=== PATIENT | female | born 1960 | race Caucasian/White ===

== ENCOUNTER 2020-08-13 06:59 | Day surgery (SDC) | payer BC ==
[~2020-08-13] VITALS: Ht 162.6 cm; Wt 66.5 kg
--- NOTE | ~2020-08-13 | HEMODYNAMI ---
PATIENT:DULCE METZ MEDICAL RECORD: [id number] : 58 LOCATION:[facility] ADMISSION DATE: 08/13/20 Generatedon:19:55 Patient name: DULCE METZ Patient #: [id number] SSN: [id number] : 1960 Date of study: 08/13/2020 Page: Of Hemodynamic Procedure Report Patient Data Patient Demographics Procedure consent was obtained First Name: DULCE Gender: Female Last Name: LASHAY : 1960 Patient #: [id number] Age: 59 year(s) Race: SSN: [id number] Additional ID: [id number] Contact details Address: [address] [place] [address] State: [place] City: [place] Zip code: [address] Past Medical History Allergies: No known allergies Admission Admission Data Admission Date: 08/13/2020 Admission Time: 6:59 Arrival Date: 08/13/2020 Arrival Time: 0:00 Admit Source: Other Insurance Payor: Private health insurance [facility] #: [id number] Height (in.): 64 BSA: 1.72 (m2) Height (cm.): 162.56 BMI: 25.23 (kg/m2) Weight (lbs.): 147 Weight (kg.): 66.68 Lab Results Lab Result Date: 08/13/2020 Lab Result Time: 0:00 Biochemistry Name Units Result Min Max BUN mg/dl 12 --(-*--)-- 7 18 Creatinine mg/dl 0.8 --(-*--)-- 0.6 1.3 eGFR ml/min 76.46749 *-(----)-- 90 120 NONAFRICAN CBC Name Units Result Min Max Hematocrit % 40.7 -*(----)-- 42 54 Hemoglobin g/dl 14 --(*---)-- 13.5 17.5 Procedure Procedure Types Cath Procedure Sedation Charges Moderate Sedation 10-24 minutes Peripheral Cath Diagnostic Procedure Supervisor Chlorine Liquefaction Peripheral Procedures AFRO Diagnostic Procedure Description Procedure Date Procedure Date: 08/13/2020 Procedure Start Time: 9:30 Procedure End Time: 9:50 Procedure Staff Name Function Vijay Montanez MD Performing Physician Kori Desouza RT Monitor Sary Cuadra RT Scrub Vivian Zambrano RN Nurse Duane Villeda RN Nurse Procedure Data Cath Procedure Fluoroscopy Diagnostic fluoroscopy Total fluoroscopy Time: 2.1 time: 2.1 min min Diagnostic fluoroscopy Total fluoroscopy dose: 127 dose: 127 mGy mGy Contrast Material Contrast Material Type Amount (ml) Isovue 370 66 Entry Location Entry Primary Successful Side Size Upsize Upsize Entry Closure Carroll ccessful Closure Location (Fr) 1 (Fr) 2 (Fr) Remarks Device Remarks Radial Right 6 Fr Mechanical artery Short Compression Estimated blood loss: 5 ml Diagnostic catheters Device Type Used For End Catheter Placement DIAGNOSTIC Pigtail 5Fr Procedure catheter ([id number]) Procedure Complications No complications Procedure Medications Medication Administration Route Dosage 0.9% NaCl I.V. 100 ml/hr Oxygen etCO2 Nasal cannula 2 l/min Zofran I.V. 4 mg Heparin Flush Bag added to field 2 bags (1000units/500ml NS) Lidocaine 2% added to field 20 Versed I.V. 1 mg Fentanyl I.V. 50 mcg Versed I.V. 1 mg Fentanyl I.V. 50 mcg Versed I.V. 1 mg Versed I.V. 1 mg Fentanyl I.V. 50 mcg Hemodynamics Rest BSA: 1.72 (m2) HGB: 14 (g/dl) O2 Consumption: Estimated: 160.72 (ml/min) O2 Cons umption indexed: Estimated:93.44 (ml/min/m) Heart Rate: 66 (bpm) Snapshots Pre Cath Intra NCS Post Cath Vital Signs Time Heart Resp SPO2 etCO2 NIBP (mmHg) Rhythm Pain Sedation Rate (ipm) (%) (mmHg) Status Level (bpm) 9:19:05 69 11 98 0 182/80(115) NSR 0 (11) 10(A) , No pain 9:23:27 71 7 97 45.7 176/86(143) NSR 0 (11) 10(A) , No pain 9:27:54 66 5 96 39 160/80(133) NSR 0 (11) 10(A) , No pain 9:32:12 69 7 97 38.2 161/86(128) NSR 0 (11) 10(A) , No pain 9:36:34 65 17 97 43.5 181/78(135) NSR 0 (11) 10(A) , No pain 9:40:54 75 11 95 36.7 158/78(120) NSR 0 (11) 10(A) , No pain 9:45:14 77 5 96 41.2 165/77(118) NSR 0 (11) 10(A) , No pain 9:49:32 76 9 98 43.5 168/91(135) NSR 0 (11) 10(A) , No pain Medications Time Medication Route Dose Verified Delivered Reason Notes Effe ctiveness by by 9:17:59 0.9% NaCl I.V. 100 Vijay Duane used for ml/hr Tarik Villeda field map editor 9:18:08 Oxygen etCO2 2 Vijay Duane used for Nasal l/min Tarik Villeda field map editor cannula 9:18:18 Zofran I.V. 4 mg Vijay Duane for nausea Tarik Villeda RN 9:18:28 Heparin Flush added 2 Vijay Vijay used for Bag to bags Tarik Montanez MD procedure (1000units/500ml field NS) 9:18:39 Lidocaine 2% added 20ml Vijay Vijay for local to vial Tarik Montanez MD anesthetic field 9:29:16 Versed I.V. 1 mg Vijay Duane for Tarik Villeda RN sedation 9:29:22 Fentanyl I.V. 50 Vijay Duane for mcg Tarik Villeda RN sedation 9:33:35 Versed I.V. 1 mg Vijay Duane for Tarik Villeda RN sedation 9:33:39 Fentanyl I.V. 50 Vijay Duane for mcg Tarik Villeda RN sedation 9:37:56 Versed I.V. 1 mg Vijay Duane for Tarik Villeda RN sedation 9:42:03 Versed I.V. 1 mg Vijay Duane for Tarik Villeda RN sedation 9:42:07 Fentanyl I.V. 50 Vijay Duane for mcg Tarik Villeda RN sedation Procedure Log Time Note 8:43:37 Diagnostic Cath Status : Elective 8:47:58 Admit Source: Other 8:48:11 Procedure Status Peripheral. 8:48:13 Time tracking: Regular hours (M-F 7:00 - 5:00) 8:48:17 Plan of Care:Hemodynamics will remain stable., Cardiac rhythm will remain stable., Comfort level will be maintained., Respiratory function will remain adequate., Patient/ family verbilizes understanding of procedure., Procedure tolerated without complication., Recovers from procedure without complications.. 8:48:25 H&P Date Dictated: 08/07/2020 Within 30 days and on chart.. 8:48:29 Family unavailable. 8:48:30 Patient NPO since Midnight. 8:48:37 Patient allergic to No known allergies 8:48:58 Arrival Date: 08/13/2020 12:00:00 AM 8:49:15 Insurance Payor : Private health insurance 8:49:42 Patient Height : 64 inches 8:49:45 Patient Weight : 147 lbs 8:54:52 Informed consent obtained and on chart 8:55:45 Vivian Zambrano RN sent for patient. Start room use. 8:56:00 Lab Result : eGFR NONAFRICAN 76.14003 ml/min 8:56:00 Lab Result : BUN 12 mg/dl 8:56:00 Lab Result : Creatinine 0.8 mg/dl 8:56:00 Lab Result : Hemoglobin 14 g/dl 8:56:00 Lab Result : Hematocrit 40.7 % 8:56:34 Lab results completed and on chart. 8:56:39 Stress Test: no; N/A ? 8:56:41 Alarms reviewed by R. N. 8:56:41 Sharps counted by scrub and verified by R.N. 8:56:47 ACC Patient presents with Stable Angina CCS Anginal Class 2--Slight limitation of ordinary activity. 9:00:43 Patient received from Pre/Post Procedure Room to [facility] 2 Alert and oriented. Tansferred to table in Supine position. 9:00:54 Warm blankets applied, and billie hugger turned on for patient comfort. 9:00:55 Correct patient and procedure confirmed by team. 9:00:55 ECG and BP/O2 sat monitors applied to patient. 9:13:23 Full Disclosure recording started 9:13:24 Pre-procedure instructions explained to patient. 9:13:25 Pre-op teaching completed and patient verbalized understanding. 9:15:41 Is the patient allergic to Iodine/contrast media? No. 9:15:42 Was the patient premedicated? Yes 9:15:43 Is patient on blood thinner?No 9:15:45 Patient diabetic? No. 9:15:47 If diabetic: On Metformin? N/A 9:15:50 Patient not . Patient is over age 55. 9:15:51 ----Pre-sedation anethsthesia assessment.---- 9:15:54 Previous problem with sedation/anesthesia? Yes NAUSEA 9:16:03 Snore? Yes 9:16:04 Sleep apnea? No 9:16:06 Deviated septum? No 9:16:06 Opens mouth fully? Yes 9:16:07 Sticks out tongue? Yes 9:16:10 Airway obstruction? No ? 9:16:12 Dentures? No ? 9:16:20 Modified Sathish's test Ulnar < 7 seconds 9:16:22 Patient pain scale 0/10 ?. 9:16:28 IV patent on arrival in right antecubital with 0.9% NaCl at KVO. 9:16:37 IV right antecubital D/C'd due to need to relocate for procedure.. 9:16:57 IV started by Vivian Zambrano RN inleft wrist with a 24 gauge IV catheter with 0.9% NaCl at KVO. 9:17:06 Right Radial area was prepped with chlora-prep and draped in sterile fashion 9:17:11 Use device set Radial Dx or PCI 9:17:13 ACIST Syringe (92536) opened to sterile field. 9:17:13 Medline Cath Pack ([id number]) opened to sterile field. 9:17:14 Bag Decanter (2002) opened to sterile field. 9:17:15 ACIST Hand Control (57079) opened to sterile field. 9:17:15 ACIST Manifold (69656) opened to sterile field. 9:17:17 MBrace Wrist Support ([id number]) opened to sterile field. 9:17:17 NEEDLE Cook 21G 4cm Radial ([id number]) opened to sterile field. 9:17:19 SHEATH 6FR RAIN ([id number]) opened to sterile field. 9:17:21 EMERALD Guide Wire (846-190) opened to sterile field. 9:17:59 0.9% NaCl 100 ml/hr I.V. was administered by Duane Villeda RN; used for procedure; Verbal order read back and verified. 9:18:08 Oxygen 2 l/min etCO2 Nasal cannula was administered by Duane Villeda RN; used for procedure; Verbal order read back and verified. 9:18:18 Zofran 4 mg I.V. was administered by Duane Villeda RN; for nausea; Verbal order read back and verified. 9:18:28 Heparin Flush Bag (1000units/500ml NS) 2 bags added to field was administered by Vijay Montanez MD; used for procedure; Verbal order read back and verified. 9:18:39 Lidocaine 2% 20ml vial added to field was administered by Vijay Montanez MD; for local anesthetic; Verbal order read back and verified. 9:21:08 Baseline sample Acquired. 9:21:14 Rhythm: sinus rhythm ::29 --------ALL STOP TIME OUT------ :29 Final Timeout: patient, procedure, and site verified with staff and physician. All members of the team are in agreement. 9:27:33 Right Radial site verified by team. 9:27:36 Fire Safety Assessment: A--An alcohol-based skin anteseptic being used preoperatively., C--Open oxygen or nitrous oxide is being used., D--An ESU, laser, or fiber-optic light is being used. 9:27:40 Physical assessment completed. ASA score P 2 - A patient with mild systemic disease as per Vijay Montanez MD. 9:27:42 2) 60-89 Mildly reduced kidney function, and other findings (as for stage 1) point to kidney disease. 9:27:52 Maximum allowable contrast dose (3.7 X eGFR X 0.75)214 ml. 9:27:56 Sedation plan: IV Moderate Sedation Medication:Versed, Fentanyl 9:29:16 Versed 1 mg I.V. was administered by Duane Villeda RN; for sedation; Verbal order read back and verified. 9:29:22 Fentanyl 50 mcg I.V. was administered by Duane Villeda RN; for sedation; Verbal order read back and verified. 9:29:53 Procedure started. 9:30:44 Local anesthetic to right radial artery with Lidocaine 2% by Vijay Montanez MD.INITIAL ACCESS ONLY 9:33:35 Versed 1 mg I.V. was administered by Duane Villeda RN; for sedation; Verbal order read back and verified. 9:33:39 Fentanyl 50 mcg I.V. was administered by Duane Villeda RN; for sedation; Verbal order read back and verified. 9:37:50 A 6 Fr Short sheath was inserted into the Right Radial artery 9:37:56 Versed 1 mg I.V. was administered by Duane Villeda RN; for sedation; Verbal order read back and verified. 9:38:53 A DIAGNOSTIC Pigtail 5Fr catheter ([id number]) was advanced over the wire and used for Procedure. 9:40:41 Abdominal Aortagram was performed. 9:42:03 Versed 1 mg I.V. was administered by Duane Villeda RN; for sedation; Verbal order read back and verified. 9:42:07 Fentanyl 50 mcg I.V. was administered by Duane Villeda RN; for sedation; Verbal order read back and verified. 9:42:33 Left leg runoff performed. 9:42:43 Injector settings: Ml/sec: 10, Volume: 20, 9:42:51 Right leg runoff performed. 9:42:55 Injector settings: Ml/sec: 10, Volume: 20, 9:44:25 Wire removed. 9:44:28 Catheter removed. 9:46:24 Sheath removed intact; hemostasis achieved with Mechanical Compression to the Right Radial artery. 9:46:26 Procedure ended.(Physican Out) 9:46:40 Fluoroscopy time 02.10 minutes. 9:46:44 Fluoroscopy dose: 127 mGy 9:46:44 Flurop Dose total: 127 9:46:48 Dose Area Product 26576 mGy/cm. 9:46:53 Contrast amount:Isovue 370 66ml. 9:47:02 Maximum allowable dose exceeded? No. 9:47:03 Sharps counted by scrub and verified by R.N. 9:47:06 Post Procedure Pulses reassessed and unchanged 9:47:19 Post-procedure physical assessment completed. ASA score P 2 - A patient with mild systemic disease as per Vijay Montanez MD. 9:47:22 Post procedure rhythm: unchanged. 9:47:24 Estimated blood loss: 5 ml 9:47:25 Post procedure instruction explained to patient.Patient verbalizes understanding. 9:47:26 Patient needs reinforcement of post procedure teaching. 9:47:57 Procedure type changed to Cath procedure, Sedation Charges, Moderate Sedation 10-24 minutes, Peripheral Cath Diagnostic Procedure, Supervisor Chlorine Liquefaction Peripheral Procedures, AFRO Diagnostic 9:48:44 Procedure and supply charges have been captured, reviewed, submitted and are correct. 9:49:17 Procedure Complication : No complications 9:50:18 Vital chart was stopped 9:50:21 AFRO Findings: PVD: surgery consult 9:50:23 See physician's report for complete and final results. 9:50:25 Report given to Pre/Post Procedure Room. 9:50:28 Patient transfered to Pre/Post Procedure Room with Stretcher. 9:50:30 Procedure ended. 9:50:30 Full Disclosure recording stopped 9:50:40 End room use (Document Last) 9:51:16 End room use (Document Last) 9:51:38 End room use (Document Last) Device Usage Item Name Manufacture Quantity Catalog Hospital Part Current Minima l Lot# / Number Charge Number Stock Stock Serial# Code ACIST Acist 1 49693 769137 [id number] [id number] 20 Syringe Medical (86365) Systems Inc Medline Medline 1 [id number] 35907 262186 5 Cath Pack ([id number]) Bag Microtek 1 636167 93673 876088 5 Decanter Medical Inc. () ACIST Hand Acist 1 02759 626172 481524 864125 5 Control Medical (94683) Systems Inc ACIST Acist 1 55903 967991 433638 000882 5 Manifold Medical (18085) Systems Inc MBrace Advanced 1 140-0250-00 799930 24509 254468 5 Wrist Vascular Support Dynamics ([id number]) NEEDLE Cook Cook Medical 1 [id number] 456672 395657 005809 5 21G 4cm Radial (N71952) SHEATH 6FR Cardinal 1 [id number] 799778 5130366 975102 5 [facility] (2112401) EMERALD Cardinal 1 502-455 454152 763950 282668 5 Guide Wire [facility] (423-724) DIAGNOSTIC Cardinal 1 [id number] 467091 183038 420708 5 Pigtail 5Fr Health catheter ([id number]) Signature Audit [place] Stage Time Signature Unsigned Intra-Procedure 08/13/2020 Kori Desouza 9:51:16 AM RT(R) Intra-Procedure 08/13/2020 Duane Villeda RN 9:51:38 AM Intra-Procedure 08/13/2020 Vijay Montanez MD 9:54:57 AM Signatures Performing Physician : Signature : Vijay Montanez MD Date : Time : Monitor : Kori Desouza Signature : RT Date : Time : Nurse : Vivian Zambrano RN Signature : Date : Time : Nurse : Duane Villeda RN Signature : Date : Time : [address] [place] [address]
[2020-08-13] MEDS ORDERED: OMEPRAZOLE40 MG PO (08:04)
[2020-08-13] MEDS ORDERED: MOBIC7.5 MG PO (08:05)
[2020-08-13] MEDS ORDERED: CRESTOR40 MG PO (08:06)
[2020-08-13] MEDS ORDERED: VITAMIN D21250 MC1 PO (08:06)
[2020-08-13] MEDS ORDERED: FOLIC ACID1 MG PO (08:07)
[2020-08-13] MEDS ORDERED: XANAX0.5 MG PO (08:07)
[2020-08-13 08:18] VITALS: BP 172/77; Ht 162.6 cm; Wt 66.5 kg
[2020-08-13 08:31] LABS: EOSINOPHILS 2.2 % (0-7); HEMATOCRIT 40.7 % (36.0-48.0); LYMPHOCYTES 34.6 % (15-50); MCH 31.1 pg (26.0-34.0); MCHC 34.3 g/dL (31.0-37.0); MCV 90.8 fL (80.0-100.0); MEAN PLATELET VOLUME 8.5 fL (7.4-10.4); MONOCYTES 6.4 % (2-11); NEUTROPHILS 55.8 % (40-80); PLATELET COUNT 238 10x3/uL (130-400); RBC 4.48 10x6/uL (4.00-5.40); RDW 13.5 % (11.5-14.5); WBC 8.6 10x3/uL (4.8-10.8)
[2020-08-13 08:49] LABS: ALT (SGPT) 31 U/L (10-68); CALC OSMOLALITY 284 mosm/kg (275-300); CALCIUM 9.2 mg/dL (8.5-10.1); CARBON DIOXIDE 27.6 mmol/L (21.0-32.0); CHLORIDE - SERUM 107 mmol/L (98-107); CHOL - HDL RATIO 3.8 ratio (2.3-4.1); CHOLESTEROL, TOTAL 155 mg/dL (0-200); CREATININE - SERUM 0.8 mg/dL (0.6-1.3); GLUCOSE 90 mg/dL (74-106); HDL CHOLESTEROL 41 mg/dL (32-96); LDL CHOLESTEROL 91 mg/dL (0-100); LDL-HDL RATIO 2.2 ratio (1.5-3.5); POTASSIUM - SERUM 3.7 mmol/L (3.5-5.1); SODIUM 143 mmol/L (136-145); TRIGLYCERIDE 118 mg/dL (30-200); UREA NITROGEN 12 mg/dL (7-18); eGFR NON AFRICAN AMERICAN 77 mL/min (90-120)
[2020-08-13] MEDS ORDERED: CYANOCOBAL1000 MCG/4 SC (08:58)
--- NOTE | 2020-08-13 09:58 | NUR ---
PT ARRIVED BY STRETCHER. PLACED ON MONITORS. ASSESSMENT COMPLETED. VSS AT THIS TIME. CALL LIGHT WITHIN REACH. FAMILY AT BEDSIDE.
--- NOTE | 2020-08-13 10:15 | NUR ---
RIGHT WRIST Z BAND IN PLACE. NO BLEEDING/HEMATOMA NOTED. PT DENIES NAUSEA/PAIN.
--- NOTE | 2020-08-13 10:41 | NUR ---
RIGHT WRIST Z BAND IN PLACE. NO BLEEDING/HEMATOMA NOTED. CALL LIGHT WITHIN REACH. VSS AT THIS TIME. PT DENIES NAUSEA/PAIN. SET UP WITH DRINK AND SANDWICH TRAY.
--- NOTE | 2020-08-13 11:10 | NUR ---
RIGHT WRIST Z BAND IN PLACE. NO BLEEDING/HEMATOMA NOTED. CALL LIGHT WITHIN REACH. VSS AT THIS TIME. PT RESTING COMFORTABLY.
--- NOTE | 2020-08-13 11:30 | NUR ---
2cc OF AIR REMOVED FROM Z BAND. NO BLEEDING/HEMATOMA NOTED. CALL LIGHT WITHIN REACH. VSS AT THIS TIME.
--- NOTE | 2020-08-13 11:45 | NUR ---
3cc OF AIR REMOVED FROM Z BAND. NO BLEEDING/HEMATOMA NOTED. CALL LIGHT WITHIN REACH.
--- NOTE | 2020-08-13 12:00 | NUR ---
5cc OF AIR REMOVED FROM Z BAND. NO BLEEDING/HEMATOMA NOTED. CALL LIGHT WITHIN REACH. VSS AT THIS TIME. I FAXED PT'S WORK EXCUSE PER HER REQUEST TO THE FAX NUMBER THAT SHE GAVE ME FOR HER WORK.
--- NOTE | 2020-08-13 12:15 | NUR ---
Z BAND REMOVED AND DRESSING APPLIED. NO BLEEDING/HEMATOMA NOTED. PIV D/C'D WITH CATH TIP INTACT. TOLERATED WELL. RIGHT WRIST BRACE IN PLACE. PT INSTRUCTED TO GET UP AND DRESSED AT THIS TIME. FAMILY AT BEDSIDE TO ASSIST.
--- NOTE | 2020-08-13 12:30 | NUR ---
DISCUSSED DISCHARGE INSTRUCTIONS WITH PT AND PT'S FAMILY. THEY VOICED UNDERSTANDING.
--- NOTE | 2020-08-13 12:30 | NUR ---
PT AMBULATED TO RESTROOM. VOIDED WITHOUT DIFFICULTY. STEADY GAIT NOTED.
--- NOTE | 2020-08-13 12:40 | NUR ---
RIGHT WRIST DRESSING C/D/I. NO S/S OF HEMATOMA NOTED. PT TAKEN OUT TO THE VEHICLE BY WHEELCHAIR. NO S/S OF DISTRESS NOTED. ALL BELONGINGS AND PAPERWORK IN HAND.
== END 2020-08-13 12:40 | disposition home or self-care (01) ==
LOC: D.CATH 06:59
PROVIDERS: ATTEND Internal Medicine Cardiovascular Disease
DX: I70.213 Atherosclerosis of native arteries of extremities with intermittent claudication, bilateral legs (principal); R93.89 Abnormal findings on diagnostic imaging of other specified body structures; E78.5 Hyperlipidemia, unspecified